=== PATIENT | male | born 1955 | race Caucasian/White ===

== ENCOUNTER 2017-05-23 15:57 | Emergency (ER) | payer SELFPAY ==
--- NOTE | 2017-05-23 17:38 | RADIOLOGY REPORT (SQ) ---
EXAM DESCRIPTION: CHEST PA/LAT COMPLETED DATE/TIME: 05/23/2017 5:29 pm REASON FOR STUDY: cough COMPARISON: None. EXAM PARAMETERS: NUMBER OF VIEWS: two views TECHNIQUE: Digital Frontal and Lateral radiographic views of the chest acquired. RADIATION DOSE: NA LIMITATIONS: none FINDINGS: LUNGS AND PLEURA: No opacities, masses or pneumothorax. No pleural effusion. MEDIASTINUM AND HILAR STRUCTURES: No masses or contour abnormalities. HEART AND VASCULAR STRUCTURES: Heart normal size. No evidence for failure. BONES: No acute findings. HARDWARE: None in the chest. OTHER: No other significant finding. IMPRESSION: NO SIGNIFICANT RADIOGRAPHIC FINDING IN THE CHEST. TECHNICAL DOCUMENTATION: JOB ID: [id number] [employer]- All Rights Reserved
[2017-05-23] MEDS ORDERED: PREDNISONE 20 MG TABLET PO ONE (17:40)
[2017-05-23] MEDS ORDERED: IPRATROPIUM/ALBUTEROL 0.5-2.5 MG/3 ML AMPUL NEB ONE (17:40)
--- NOTE | 2017-05-23 18:08 | ER Document Report ---
ED Respiratory Problem - General Chief Complaint: Cough Stated Complaint: ABNORMAL LABS Time Seen by Provider: 05/23/17 17:34 Notes: 61 yo male with hx/o COPD presents to ED from [place] office for cough x 1 week. Pt does have hx/o pneumonia. + smoker. reports productive cough, dizziness, nausea, chills x 1 week. using inhalers as prescribed, but nebulizer machine is broken. pt reports increased dyspnea and increased sputum production TRAVEL OUTSIDE OF THE [place] IN LAST 30 DAYS: No - HPI Patient complains to provider of: COPD, Cough Onset: Last week Duration: Continuous, Worse/persistent Initiating Event: URI Quality of pain: Achy Short of Breath: Moderate Chest pain/discomfort: Worse with deep breaths Cough: Productive Sputum amount: Moderate Sputum color: Green Sputum consistency: Mucoid At home treatment: Bronchodilators Associated symptoms: Chills, Congestion, Cough, Difficulty breathing, Extertional dyspnea, Sinus pain/pressure, Wheezing. denies: Heart racing, Hurts to breathe Similar symptoms previously: Yes Recently seen / treated by doctor: Yes - Related Data Allergies/Adverse Reactions: gabapentin Allergy (Verified 05/23/17 16:02) pregabalin [From Lyrica] Allergy (Verified 05/23/17 16:02) Past Medical History - General Information source: Patient - Social History Smoking Status: Current Every Day Smoker Frequency of alcohol use: None Drug Abuse: None Lives with: Alone Family History: None Pulmonary Medical History: Reports: Hx Pneumonia Renal/ Medical History: Denies: Hx Peritoneal Dialysis Review of Systems - Review of Systems Constitutional: No symptoms reported EENT: No symptoms reported Cardiovascular: No symptoms reported Respiratory: See HPI Gastrointestinal: No symptoms reported Genitourinary: No symptoms reported Male Genitourinary: No symptoms reported Musculoskeletal: No symptoms reported Skin: No symptoms reported Hematologic/Lymphatic: No symptoms reported Neurological/Psychological: No symptoms reported Physical Exam - Vital signs Vitals: Temp Pulse Resp BP Pulse Ox 98.3 F 72 20 104/76 96 05/23/17 16:00 05/23/17 16:00 05/23/17 16:00 05/23/17 16:00 05/23/17 16:00 Interpretation: Normal - General General appearance: Alert In distress: None - HEENT Head: Normocephalic, Atraumatic Eyes: Normal Pupils: PERRL - Respiratory Respiratory status: No respiratory distress Chest status: Nontender Breath sounds: Rhonchi, Wheezing - Sat 96% Chest palpation: Normal - Cardiovascular Rhythm: Regular Heart sounds: Normal auscultation Murmur: No - Abdominal Inspection: Normal Distension: No distension Bowel sounds: Normal Tenderness: Nontender Organomegaly: No organomegaly - Back Back: Normal, Nontender - Extremities General upper extremity: Normal inspection, Nontender, Normal color, Normal ROM , Normal temperature General lower extremity: Normal inspection, Nontender, Normal color, Normal ROM , Normal temperature, Normal weight bearing. No: Lila's sign - Neurological Neuro grossly intact: Yes Cognition: Normal Orientation: AAOx4 [place] Coma Scale Eye Opening: Spontaneous [place] Coma Scale Verbal: Oriented [place] Coma Scale Motor: Obeys Commands [place] Coma Scale Total: 15 Speech: Normal Motor strength normal: LUE, RUE, LLE, RLE Sensory: Normal - Psychological Associated symptoms: Normal affect, Normal mood - Skin Skin Temperature: Warm Skin Moisture: Dry Skin Color: Normal Course - Re-evaluation Re-evalutation: 05/23/17 18:33 chest xray is negative. IMPRESSION: NO SIGNIFICANT RADIOGRAPHIC FINDING IN THE CHEST. results reviewed with patient. H&P c/w COPD exacerbation. after nebulizer, pt is exhibiting no symptoms of respiratory compromise. no difficulty speaking, no increased respiratory effort, no use of accessory respiratory muscles. I estimate low risk of heart failure, pulmonary thromboembolism, pneumonia, or pneumothorax. will treat with bronchodilators. oral steroids, oral antibiotics and close follow up with primary care. pt is agreeable with plan and stable for discharge 05/23/17 18:51 I reviewed plan with Dr Brody. Agrees with plan - Vital Signs Vital signs: Temp Pulse Resp BP Pulse Ox 98.3 F 72 20 104/76 96 05/23/17 16:00 05/23/17 16:00 05/23/17 16:00 05/23/17 16:00 05/23/17 16:00 Discharge - Discharge Clinical Impression: COPD exacerbation Condition: Stable Disposition: HOME, SELF-CARE Instructions: Chronic Obstructive Lung Disease ([facility]), Steroid Medication, Inhaled Bronchodilators ([facility]), Antibiotic Therapy ([facility]) Additional Instructions: Your xray is negative for pneumonia Your history and physical are consistent with a COPD exacerbation Please take your medications as prescribed continue your current meds as prescribed You will need close follow up with your primary care. See them tomorrow Return to ER for any worsening Prescriptions: Benzonatate [Tessalon Perles 100 mg Capsule] 200 mg PO Q8HP PRN #40 capsule PRN Reason: Azithromycin [Zithromax 250 mg Tablet] 250 mg PO ASDIR #6 tablet Ipratropium/Albuterol Sulfate [Duoneb 3 ml Ampul] 3 ml NEB Q6H PRN #30 appful PRN Reason: Nebulizer [Nebulizer Machine] 1 each MC ASDIR PRN #1 kit PRN Reason: Prednisone [Deltasone 20 mg Tablet] 3 tab PO DAILY 5 Days tablet
[2017-05-23] MEDS ORDERED: ALBUTEROL SULFATE 0.083% NEB 2.5 MG/3 ML AMPUL NEB ONE (18:33)
[2017-05-23 19:12] VITALS: BP 111/66
== END 2017-05-23 19:12 | disposition home or self-care (01) ==
LOC: ER 15:57
DX: J44.1 Chronic obstructive pulmonary disease with (acute) exacerbation (principal); R05 Cough; J18.9 Pneumonia, unspecified organism; R42 Dizziness and giddiness; R06.00 Dyspnea, unspecified; F17.200 Nicotine dependence, unspecified, uncomplicated
CPT/HCPCS: 94640 ×2; 99283; 71020; J7512; J7620

== ENCOUNTER 2019-10-09 15:48 | Emergency (ER) | payer SELFPAY ==
[2019-10-09 16:01] VITALS: BP 104/65
== END 2019-10-09 17:25 | disposition left against medical advice (07) ==
LOC: ER 15:48
DX: Z53.21 Procedure and treatment not carried out due to patient leaving prior to being seen by health care provider (principal)